=== PATIENT | male | born 1970 | race Caucasian/White ===

== ENCOUNTER → 2017-08-25 | Outpatient (CLI) | payer BC, MEDICARE ==
[~2017-08-25] MED LIST: AMIT10TA6 PO; ARIP15TA PO; ATOR40TA PO; CYCL10TA9 PO; GABA-488 PO; GABAPENTIN PO; LISINOPRIL PO; METFOR850T PO; MORP30CP12 PO; MS15TCR PO; NAPR-689 PO; OXYC-272 PO; OXYC-281 PO; PIOG1TAB PO; PROP60CA17 PO; QUET150T PO; SULF1TAB23 PO; TRAZODONE PO; TRZ100T PO; VENL150T4 PO
--- NOTE | 2017-08-25 12:39 | Diagnostic Imaging Report ---
PROCEDURE: MRI lumbar spine. TECHNIQUE: Multiplanar, multisequence MRI of the lumbar spine was performed without contrast. INDICATION: Back pain. History of laminectomy and fusion. COMPARISON: 06/07/2012 FINDINGS: Alignment is stable. There is no subluxation or fracture. There is a stable appearing laminectomy and fusion of L3-4, L4-5 and L5-S1. There is no postoperative fluid collection. No recurrent foraminal or central canal stenosis is seen at these levels. There is however worsening degenerative disc disease and facet joint arthropathy at the L2-3 level. There is resultant severe central canal stenosis with moderate bilateral foraminal stenosis. The remainder of the visualized disc space levels are within normal limits. There is some clumping of nerve roots within the thecal sac which could represent ongoing or chronic arachnoiditis. There is no paraspinous mass. IMPRESSION: 1. Severe central canal stenosis with bilateral foraminal stenosis at L2-3 secondary to osteophyte disc complex and facet and ligament flavum hypertrophy. 2. Stable appearing laminectomy and fusion at L3-4, L4-5 and L5-S1. No recurrent central canal or foraminal stenosis is seen. 3. 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 Dictated by: Dictated on workstation # [id number]
== END ==
LOC: RAD 10:32
PROVIDERS: ATTEND Nurse Practitioner Community Health
DX: M48.02 Spinal stenosis, cervical region (principal); Z98.890 Other specified postprocedural states
CPT/HCPCS: 72148